=== PATIENT | female | born 1965 | race Caucasian/White ===

== ENCOUNTER 2022-10-25 12:14 | Inpatient (IN) | payer OTHER ==
[2022-10-25 13:54] VITALS: BMI 27.4
[2022-10-25] MEDS ORDERED: IBUPROFEN 400 MG TABLET (FP) PO PRN (14:55)
[2022-10-25] MEDS ORDERED: ONDANSETRON *ODT* 4 MG TABLET SL PRN (14:55)
[2022-10-25] MEDS ORDERED: POLYETHYLENE GLYCOL (HEALTHYLAX) 3350 17 GM PACKET PO PRN (14:55)
[2022-10-25] MEDS ORDERED: MAGNESIUM HYDROX 2400MG/30ML ORAL SUSPENSION 30 ML CUP PO PRN (14:55)
[2022-10-25] MEDS ORDERED: NALOXONE HCL (KLOXXADO) 8 MG SPRAY NS PRN (14:55)
[2022-10-25] MEDS ORDERED: BISMUTH SUBSALICYLATE 262 MG/15 ML BTL PO PRN (14:55)
[2022-10-25] MEDS ORDERED: ACETAMINOPHEN 325 MG TABLET (FP) PO PRN ×2 (14:55)
[2022-10-25] MEDS ORDERED: NICOTINE 10 MG CARTRIDGE (INHALER) IH PRN (14:55)
[2022-10-25] MEDS ORDERED: IBUPROFEN 600 MG TABLET (FP) PO PRN (14:55)
[2022-10-25] MEDS ORDERED: DICYCLOMINE HCL 10 MG CAPSULE PO PRN (14:55)
[2022-10-25] MEDS ORDERED: NICOTINE POLACRILEX 2 MG GUM BUC PRN (14:55)
[2022-10-25] MEDS ORDERED: BENZOCAINE/MENTHOL (CHLORASEPTIC ) LOZENGE MM PRN (14:55)
[2022-10-25] MEDS ORDERED: LOPERAMIDE HCL 2 MG CAPSULE PO PRN (14:55)
[2022-10-25] MEDS ORDERED: MAG HYDROX/AL HYDROX/SIMETH 30 ML UNIT-DOSE CUP PO PRN (14:55)
[2022-10-25] MEDS ORDERED: NICOTINE 7 MG/24 HOURS TOPICAL PATCH TD PRN (14:55)
[2022-10-25] MEDS ORDERED: ALBUTEROL SO4 HFA INHALER IH PRN (15:04)
[2022-10-25] MEDS: INSULIN SLIDING SCALE (NOVOLOG) 1 VIAL SQ SCH (17:53)
[2022-10-25] MEDS ORDERED: MELATONIN 5 MG TABLETS PO SCH (22:00)
[2022-10-25] MEDS: TOLNAFTATE 1% CREAM 15 GM TUBE TP SCH (22:55)
[2022-10-25] MEDS: THIAMINE HCL 100 MG TABLET (FP) PO SCH (22:55)
[2022-10-26] MEDS: INSULIN SLIDING SCALE (NOVOLOG) 1 VIAL SQ SCH ×2 (06:05→17:28)
[2022-10-26] MEDS: METHOCARBAMOL 500 MG TABLET PO PRN (06:07)
[2022-10-26] MEDS: hydrOXYzine PAMOATE 25 MG CAPSULE (FP) PO PRN (06:07)
[2022-10-26 09:47] LABS: BLOOD UREA NITROGEN 16.4 mg/dL (7-18); CALCIUM 8.9 mg/dL (8.5-10.1)
[2022-10-26 09:50] LABS: CREATININE 0.8 mg/dL (0.55-1.3)
[2022-10-26 09:52] LABS: BILIRUBIN,TOTAL 0.4 mg/dL (0.2-1); TOT PROT 7.3 g/dl (6.4-8.2)
[2022-10-26 09:53] LABS: HEMATOCRIT 38.8 % (32.4-45.2); HEMOGLOBIN 12.5 GM/dL (10.7-15.3); MCH 27.5 pg (25.7-33.7); MCHC 32.2 g/dl (32.0-36.0); MEAN CELL VOLUME 85.6 fl (80-96); MEAN PLT VOLUME 7.5 fl (7.5-11.1); PLATELET COUNT 436 10^3/uL (134-434); RBC 4.54 M/mm3 (3.60-5.2); RDW 14.3 % (11.6-15.6); WHITE BLOOD COUNT 7.3 K/mm3 (4.0-10.0)
[2022-10-26] MEDS ORDERED: methaDONE HCL 10 MG TABLET PO SCH (10:15)
[2022-10-26] MEDS: methaDONE 80 MG, methaDONE 20 MG PO SCH (10:16)
[2022-10-26] MEDS: PRENATAL VITAMINS W/ FOLIC ACID TABLET (FP) PO SCH (10:16)
[2022-10-26] MEDS: TOLNAFTATE 1% CREAM 15 GM TUBE TP SCH ×2 (10:16→22:24)
[2022-10-26] MEDS ORDERED: SUVOREXANT 5 MG TABLET PO PRN (22:00)
[2022-10-26] MEDS: THIAMINE HCL 100 MG TABLET (FP) PO SCH (22:22)
[2022-10-27] MEDS: methaDONE 80 MG, methaDONE 20 MG PO SCH (05:35)
[2022-10-27] MEDS: hydrOXYzine PAMOATE 25 MG CAPSULE (FP) PO PRN (05:37)
[2022-10-27] MEDS: INSULIN SLIDING SCALE (NOVOLOG) 1 VIAL SQ SCH (06:03)
[2022-10-27 07:06] VITALS: RESP 18
[2022-10-27 09:02] VITALS: BP 106/63; PULSE 66; TEMP 98.1
[2022-10-27] MEDS: PRENATAL VITAMINS W/ FOLIC ACID TABLET (FP) PO SCH (10:13)
[2022-10-27] MEDS: METHOCARBAMOL 500 MG TABLET PO PRN (10:15)
[2022-10-27] MEDS: TOLNAFTATE 1% CREAM 15 GM TUBE TP SCH (10:16)
== END 2022-10-27 13:05 | disposition other institution (70) | DRG 773 ==
LOC: YASAS 12:14 → Y3N 15:32
PROVIDERS: ADMIT Allergy & Immunology; ATTEND Surgery
PROC: HZ2ZZZZ Detoxification Services for Substance Abuse Treatment (ICD-10-PCS; principal; 2022-10-25)
DX: F11.20 Opioid dependence, uncomplicated (principal); F10.20 Alcohol dependence, uncomplicated; F14.20 Cocaine dependence, uncomplicated; F13.10 Sedative, hypnotic or anxiolytic abuse, uncomplicated; F17.210 Nicotine dependence, cigarettes, uncomplicated; F19.24 Other psychoactive substance dependence with psychoactive substance-induced mood disorder; G40.909 Epilepsy, unspecified, not intractable, without status epilepticus; G47.00 Insomnia, unspecified; I10 Essential (primary) hypertension; R73.03 Prediabetes; Z86.59 Personal history of other mental and behavioral disorders; Z99.89 Dependence on other enabling machines and devices; Z59.00 Homelessness unspecified; Z56.0 Unemployment, unspecified
CPT/HCPCS: 36415; 80053; 82140; 82962; 85027; 86593; 86780; C9803-CS; U0003; U0005

== ENCOUNTER 2022-10-27 13:18 | Inpatient (IN) | payer OTHER ==
[2022-10-27] MEDS ORDERED: MAGNESIUM HYDROX 2400MG/30ML ORAL SUSPENSION 30 ML CUP PO PRN (13:51)
[2022-10-27] MEDS ORDERED: P-EPHED 60MG/TRIPROLIDI 2.5MG TABLET PO PRN (13:51)
[2022-10-27] MEDS ORDERED: LOPERAMIDE HCL 2 MG CAPSULE PO PRN (13:51)
[2022-10-27] MEDS ORDERED: POLYETHYLENE GLYCOL (HEALTHYLAX) 3350 17 GM PACKET PO PRN (13:51)
[2022-10-27] MEDS ORDERED: ACETAMINOPHEN 325 MG TABLET (FP) PO PRN (13:51)
[2022-10-27] MEDS ORDERED: guaiFENesin 200 MG/10 ML 10 ML UNIT-DOSE CUPS PO PRN (13:51)
[2022-10-27] MEDS ORDERED: BENZOCAINE/MENTHOL (CHLORASEPTIC ) LOZENGE MM PRN (13:51)
[2022-10-27] MEDS ORDERED: IBUPROFEN 400 MG TABLET (FP) PO PRN (13:51)
[2022-10-27] MEDS: NICOTINE 10 MG CARTRIDGE (INHALER) IH PRN (14:51)
[2022-10-27] MEDS: THIAMINE HCL 100 MG TABLET (FP) PO SCH (21:49)
[2022-10-27] MEDS: MELATONIN 5 MG TABLETS PO SCH (21:49)
[2022-10-27] MEDS: TOLNAFTATE 1% CREAM 15 GM TUBE TP SCH (21:49)
[2022-10-28] MEDS: ALBUTEROL SO4 HFA INHALER IH PRN ×2 (05:59→22:18)
[2022-10-28] MEDS: methaDONE 80 MG, methaDONE 20 MG PO SCH (06:00)
[2022-10-28] MEDS: NICOTINE 10 MG CARTRIDGE (INHALER) IH PRN (08:07)
[2022-10-28] MEDS: PRENATAL VITAMINS W/ FOLIC ACID TABLET (FP) PO SCH (10:50)
[2022-10-28] MEDS: TOLNAFTATE 1% CREAM 15 GM TUBE TP SCH ×2 (10:50→21:09)
[2022-10-28] MEDS: hydrOXYzine PAMOATE 25 MG CAPSULE (FP) PO PRN (10:50)
[2022-10-28] MEDS: GABAPENTIN 300 MG CAPSULE PO SCH ×2 (14:18→21:09)
[2022-10-28] MEDS: QUEtiapine FUMARATE 50 MG TABLET PO SCH (21:09)
[2022-10-28] MEDS: THIAMINE HCL 100 MG TABLET (FP) PO SCH (21:09)
[2022-10-28] MEDS: MELATONIN 5 MG TABLETS PO SCH (21:09)
[2022-10-28] MEDS ORDERED: SUVOREXANT 5 MG TABLET PO PRN (22:00)
[2022-10-29] MEDS: GABAPENTIN 300 MG CAPSULE PO SCH ×3 (06:21→21:08)
[2022-10-29] MEDS: methaDONE 80 MG, methaDONE 20 MG PO SCH (06:21)
[2022-10-29] MEDS: PRENATAL VITAMINS W/ FOLIC ACID TABLET (FP) PO SCH (09:38)
[2022-10-29] MEDS: TOLNAFTATE 1% CREAM 15 GM TUBE TP SCH ×2 (09:39→21:08)
[2022-10-29] MEDS: hydrOXYzine PAMOATE 25 MG CAPSULE (FP) PO PRN ×2 (13:08→21:09)
[2022-10-29] MEDS: ALBUTEROL SO4 HFA INHALER IH PRN (21:07)
[2022-10-29] MEDS: QUEtiapine FUMARATE 50 MG TABLET PO SCH (21:08)
[2022-10-29] MEDS: MELATONIN 5 MG TABLETS PO SCH (21:08)
[2022-10-29] MEDS: THIAMINE HCL 100 MG TABLET (FP) PO SCH (21:08)
[2022-10-30] MEDS: methaDONE 80 MG, methaDONE 20 MG PO SCH (06:46)
[2022-10-30] MEDS: GABAPENTIN 300 MG CAPSULE PO SCH ×3 (06:47→21:08)
[2022-10-30] MEDS: PRENATAL VITAMINS W/ FOLIC ACID TABLET (FP) PO SCH (09:57)
[2022-10-30] MEDS: hydrOXYzine PAMOATE 25 MG CAPSULE (FP) PO PRN (09:58)
[2022-10-30] MEDS: TOLNAFTATE 1% CREAM 15 GM TUBE TP SCH ×2 (09:58→21:09)
[2022-10-30] MEDS: ALBUTEROL SO4 HFA INHALER IH PRN (14:33)
[2022-10-30] MEDS: MELATONIN 5 MG TABLETS PO SCH (21:08)
[2022-10-30] MEDS: THIAMINE HCL 100 MG TABLET (FP) PO SCH (21:08)
[2022-10-30] MEDS: QUEtiapine FUMARATE 50 MG TABLET PO SCH (21:08)
[2022-10-31] MEDS: ALBUTEROL SO4 HFA INHALER IH PRN (06:25)
[2022-10-31] MEDS: GABAPENTIN 300 MG CAPSULE PO SCH ×3 (06:26→21:16)
[2022-10-31] MEDS: methaDONE 80 MG, methaDONE 20 MG PO SCH (06:26)
[2022-10-31] MEDS: PRENATAL VITAMINS W/ FOLIC ACID TABLET (FP) PO SCH (09:53)
[2022-10-31] MEDS: TOLNAFTATE 1% CREAM 15 GM TUBE TP SCH ×2 (09:53→21:16)
[2022-10-31] MEDS: QUEtiapine FUMARATE 50 MG TABLET PO SCH (21:16)
[2022-10-31] MEDS: MELATONIN 5 MG TABLETS PO SCH (21:16)
[2022-10-31] MEDS: THIAMINE HCL 100 MG TABLET (FP) PO SCH (21:16)
[2022-10-31] MEDS ORDERED: SUVOREXANT 5 MG TABLET PO PRN (22:00)
[2022-11-01] MEDS: methaDONE 80 MG, methaDONE 20 MG PO SCH (06:20)
[2022-11-01] MEDS: GABAPENTIN 300 MG CAPSULE PO SCH ×3 (06:20→21:04)
[2022-11-01] MEDS: PRENATAL VITAMINS W/ FOLIC ACID TABLET (FP) PO SCH (09:54)
[2022-11-01] MEDS: ALBUTEROL SO4 HFA INHALER IH PRN (09:54)
[2022-11-01] MEDS: TOLNAFTATE 1% CREAM 15 GM TUBE TP SCH ×2 (09:54→21:06)
[2022-11-01] MEDS: THIAMINE HCL 100 MG TABLET (FP) PO SCH (21:03)
[2022-11-01] MEDS: MELATONIN 5 MG TABLETS PO SCH (21:04)
[2022-11-01] MEDS: QUEtiapine FUMARATE 50 MG TABLET PO SCH (21:04)
[2022-11-02] MEDS: GABAPENTIN 300 MG CAPSULE PO SCH ×3 (06:37→21:09)
[2022-11-02] MEDS: methaDONE 80 MG, methaDONE 20 MG PO SCH (06:38)
[2022-11-02] MEDS: NICOTINE 10 MG CARTRIDGE (INHALER) IH PRN (08:58)
[2022-11-02] MEDS: PRENATAL VITAMINS W/ FOLIC ACID TABLET (FP) PO SCH (09:39)
[2022-11-02] MEDS: TOLNAFTATE 1% CREAM 15 GM TUBE TP SCH ×2 (09:40→23:34)
[2022-11-02] MEDS: QUEtiapine FUMARATE 50 MG TABLET PO SCH (21:09)
[2022-11-02] MEDS: hydrOXYzine PAMOATE 25 MG CAPSULE (FP) PO PRN (21:09)
[2022-11-02] MEDS: MELATONIN 5 MG TABLETS PO SCH (21:09)
[2022-11-02] MEDS: THIAMINE HCL 100 MG TABLET (FP) PO SCH (21:09)
[2022-11-03] MEDS: methaDONE 80 MG, methaDONE 20 MG PO SCH (06:27)
[2022-11-03] MEDS: GABAPENTIN 300 MG CAPSULE PO SCH ×3 (06:27→21:12)
[2022-11-03] MEDS: ALBUTEROL SO4 HFA INHALER IH PRN (06:27)
[2022-11-03] MEDS: TOLNAFTATE 1% CREAM 15 GM TUBE TP SCH ×2 (09:51→21:20)
[2022-11-03] MEDS: PRENATAL VITAMINS W/ FOLIC ACID TABLET (FP) PO SCH (09:51)
[2022-11-03] MEDS ORDERED: methaDONE 80 MG, methaDONE 20 MG PO SCH (11:45)
[2022-11-03] MEDS: THIAMINE HCL 100 MG TABLET (FP) PO SCH (21:12)
[2022-11-03] MEDS: MELATONIN 5 MG TABLETS PO SCH (21:12)
[2022-11-03] MEDS: QUEtiapine FUMARATE 50 MG TABLET PO SCH (21:12)
[2022-11-03] MEDS: hydrOXYzine PAMOATE 25 MG CAPSULE (FP) PO PRN (21:13)
[2022-11-03] MEDS ORDERED: SUVOREXANT 5 MG TABLET PO PRN (22:00)
[2022-11-04] MEDS ORDERED: methaDONE HCL 10 MG TABLET PO SCH (06:00)
[2022-11-04] MEDS: methaDONE 80 MG, methaDONE 20 MG PO SCH (06:32)
[2022-11-04] MEDS: GABAPENTIN 300 MG CAPSULE PO SCH ×3 (06:33→21:13)
[2022-11-04] MEDS: NICOTINE 10 MG CARTRIDGE (INHALER) IH PRN (06:50)
[2022-11-04] MEDS: PRENATAL VITAMINS W/ FOLIC ACID TABLET (FP) PO SCH (09:38)
[2022-11-04] MEDS: TOLNAFTATE 1% CREAM 15 GM TUBE TP SCH ×2 (09:39→21:13)
[2022-11-04] MEDS: LIDOCAINE 5% TOPICAL PATCH TP SCH (09:58)
[2022-11-04] MEDS: THIAMINE HCL 100 MG TABLET (FP) PO SCH (21:13)
[2022-11-04] MEDS: LIDOCAINE PATCH REMOVAL MC SCH (21:14)
[2022-11-04] MEDS ORDERED: SUVOREXANT 10 MG TABLET PO PRN (22:00)
[2022-11-05] MEDS: GABAPENTIN 300 MG CAPSULE PO SCH ×3 (06:13→21:13)
[2022-11-05] MEDS: methaDONE 80 MG, methaDONE 20 MG PO SCH (06:13)
[2022-11-05] MEDS: PRENATAL VITAMINS W/ FOLIC ACID TABLET (FP) PO SCH (09:45)
[2022-11-05] MEDS: TOLNAFTATE 1% CREAM 15 GM TUBE TP SCH ×2 (09:47→21:38)
[2022-11-05] MEDS: LIDOCAINE 5% TOPICAL PATCH TP SCH (09:47)
[2022-11-05] MEDS: LIDOCAINE PATCH REMOVAL MC SCH (21:13)
[2022-11-05] MEDS: THIAMINE HCL 100 MG TABLET (FP) PO SCH (21:13)
[2022-11-05] MEDS: hydrOXYzine PAMOATE 25 MG CAPSULE (FP) PO PRN (21:14)
[2022-11-06] MEDS: methaDONE 80 MG, methaDONE 20 MG PO SCH (06:32)
[2022-11-06] MEDS: GABAPENTIN 300 MG CAPSULE PO SCH ×3 (06:32→21:09)
[2022-11-06] MEDS: PRENATAL VITAMINS W/ FOLIC ACID TABLET (FP) PO SCH (09:53)
[2022-11-06] MEDS: LIDOCAINE 5% TOPICAL PATCH TP SCH (09:54)
[2022-11-06] MEDS: TOLNAFTATE 1% CREAM 15 GM TUBE TP SCH ×2 (09:55→21:10)
[2022-11-06] MEDS: THIAMINE HCL 100 MG TABLET (FP) PO SCH (21:09)
[2022-11-06] MEDS: LIDOCAINE PATCH REMOVAL MC SCH (21:10)
[2022-11-07] MEDS: GABAPENTIN 300 MG CAPSULE PO SCH ×3 (06:32→21:09)
[2022-11-07] MEDS: methaDONE 80 MG, methaDONE 20 MG PO SCH (06:33)
[2022-11-07] MEDS: NICOTINE 10 MG CARTRIDGE (INHALER) IH PRN (06:34)
[2022-11-07] MEDS: PRENATAL VITAMINS W/ FOLIC ACID TABLET (FP) PO SCH (10:10)
[2022-11-07] MEDS: LIDOCAINE 5% TOPICAL PATCH TP SCH (10:11)
[2022-11-07] MEDS: TOLNAFTATE 1% CREAM 15 GM TUBE TP SCH ×2 (10:11→21:10)
[2022-11-07] MEDS: THIAMINE HCL 100 MG TABLET (FP) PO SCH (21:09)
[2022-11-07] MEDS: LIDOCAINE PATCH REMOVAL MC SCH (21:09)
[2022-11-07] MEDS: hydrOXYzine PAMOATE 25 MG CAPSULE (FP) PO PRN (21:10)
[2022-11-07] MEDS ORDERED: SUVOREXANT 10 MG TABLET PO PRN (22:00)
[2022-11-08] MEDS: methaDONE 80 MG, methaDONE 20 MG PO SCH (06:24)
[2022-11-08] MEDS: GABAPENTIN 300 MG CAPSULE PO SCH ×3 (06:24→21:48)
[2022-11-08] MEDS: PRENATAL VITAMINS W/ FOLIC ACID TABLET (FP) PO SCH (09:57)
[2022-11-08] MEDS: LIDOCAINE 5% TOPICAL PATCH TP SCH (09:58)
[2022-11-08] MEDS: TOLNAFTATE 1% CREAM 15 GM TUBE TP SCH ×2 (09:58→21:49)
[2022-11-08] MEDS: THIAMINE HCL 100 MG TABLET (FP) PO SCH (21:48)
[2022-11-08] MEDS: LIDOCAINE PATCH REMOVAL MC SCH (21:48)
[2022-11-09] MEDS: GABAPENTIN 300 MG CAPSULE PO SCH ×3 (06:39→21:44)
[2022-11-09] MEDS: NICOTINE 10 MG CARTRIDGE (INHALER) IH PRN (06:39)
[2022-11-09] MEDS: methaDONE 80 MG, methaDONE 20 MG PO SCH (06:39)
[2022-11-09] MEDS: LIDOCAINE 5% TOPICAL PATCH TP SCH (10:00)
[2022-11-09] MEDS: PRENATAL VITAMINS W/ FOLIC ACID TABLET (FP) PO SCH (10:00)
[2022-11-09] MEDS: TOLNAFTATE 1% CREAM 15 GM TUBE TP SCH ×2 (10:02→21:45)
[2022-11-09] MEDS: THIAMINE HCL 100 MG TABLET (FP) PO SCH (21:44)
[2022-11-09] MEDS: LIDOCAINE PATCH REMOVAL MC SCH (21:45)
[2022-11-09] MEDS: hydrOXYzine PAMOATE 25 MG CAPSULE (FP) PO PRN (21:45)
[2022-11-10] MEDS: methaDONE 80 MG, methaDONE 20 MG PO SCH (06:36)
[2022-11-10] MEDS: GABAPENTIN 300 MG CAPSULE PO SCH ×3 (06:37→21:55)
[2022-11-10] MEDS: PRENATAL VITAMINS W/ FOLIC ACID TABLET (FP) PO SCH (10:09)
[2022-11-10] MEDS: LIDOCAINE 5% TOPICAL PATCH TP SCH (10:10)
[2022-11-10] MEDS: TOLNAFTATE 1% CREAM 15 GM TUBE TP SCH ×2 (10:11→21:56)
[2022-11-10] MEDS: THIAMINE HCL 100 MG TABLET (FP) PO SCH (21:55)
[2022-11-10] MEDS: hydrOXYzine PAMOATE 25 MG CAPSULE (FP) PO PRN (21:55)
[2022-11-10] MEDS: LIDOCAINE PATCH REMOVAL MC SCH (21:56)
[2022-11-10] MEDS ORDERED: SUVOREXANT 10 MG TABLET PO PRN (22:00)
[2022-11-11] MEDS: MAG HYDROX/AL HYDROX/SIMETH 30 ML UNIT-DOSE CUP PO PRN (06:46)
[2022-11-11] MEDS: methaDONE 80 MG, methaDONE 20 MG PO SCH (07:25)
[2022-11-11] MEDS: GABAPENTIN 300 MG CAPSULE PO SCH ×3 (07:27→21:13)
[2022-11-11] MEDS ORDERED: ONDANSETRON *ODT* 4 MG TABLET SL PRN (07:44)
[2022-11-11] MEDS: LIDOCAINE 5% TOPICAL PATCH TP SCH (10:21)
[2022-11-11] MEDS: TOLNAFTATE 1% CREAM 15 GM TUBE TP SCH ×2 (10:21→21:14)
[2022-11-11] MEDS: PRENATAL VITAMINS W/ FOLIC ACID TABLET (FP) PO SCH (10:21)
[2022-11-11] MEDS: LIDOCAINE PATCH REMOVAL MC SCH (21:13)
[2022-11-11] MEDS: THIAMINE HCL 100 MG TABLET (FP) PO SCH (21:13)
[2022-11-11] MEDS: hydrOXYzine PAMOATE 25 MG CAPSULE (FP) PO PRN (21:15)
[2022-11-12] MEDS: GABAPENTIN 300 MG CAPSULE PO SCH ×3 (06:25→21:29)
[2022-11-12] MEDS: methaDONE 80 MG, methaDONE 20 MG PO SCH (06:25)
[2022-11-12] MEDS: MAG HYDROX/AL HYDROX/SIMETH 30 ML UNIT-DOSE CUP PO PRN (06:27)
[2022-11-12] MEDS: NICOTINE 10 MG CARTRIDGE (INHALER) IH PRN (07:05)
[2022-11-12] MEDS: LIDOCAINE 5% TOPICAL PATCH TP SCH (09:40)
[2022-11-12] MEDS: TOLNAFTATE 1% CREAM 15 GM TUBE TP SCH ×2 (09:41→21:29)
[2022-11-12] MEDS: PRENATAL VITAMINS W/ FOLIC ACID TABLET (FP) PO SCH (09:41)
[2022-11-12] MEDS: LIDOCAINE PATCH REMOVAL MC SCH (21:28)
[2022-11-12] MEDS: THIAMINE HCL 100 MG TABLET (FP) PO SCH (21:29)
[2022-11-12] MEDS: hydrOXYzine PAMOATE 25 MG CAPSULE (FP) PO PRN (21:29)
[2022-11-13] MEDS: methaDONE 80 MG, methaDONE 20 MG PO SCH (06:28)
[2022-11-13] MEDS: NICOTINE 10 MG CARTRIDGE (INHALER) IH PRN (06:28)
[2022-11-13] MEDS: GABAPENTIN 300 MG CAPSULE PO SCH ×3 (06:29→21:43)
[2022-11-13] MEDS: PRENATAL VITAMINS W/ FOLIC ACID TABLET (FP) PO SCH (10:24)
[2022-11-13] MEDS: TOLNAFTATE 1% CREAM 15 GM TUBE TP SCH ×2 (10:24→23:12)
[2022-11-13] MEDS: LIDOCAINE 5% TOPICAL PATCH TP SCH (10:24)
[2022-11-13] MEDS: THIAMINE HCL 100 MG TABLET (FP) PO SCH (21:43)
[2022-11-13] MEDS: LIDOCAINE PATCH REMOVAL MC SCH (23:12)
[2022-11-14] MEDS: methaDONE 80 MG, methaDONE 20 MG PO SCH (06:24)
[2022-11-14] MEDS: GABAPENTIN 300 MG CAPSULE PO SCH ×3 (06:24→21:26)
[2022-11-14 07:17] VITALS: RESP 16
[2022-11-14] MEDS: PRENATAL VITAMINS W/ FOLIC ACID TABLET (FP) PO SCH (09:26)
[2022-11-14] MEDS: LIDOCAINE 5% TOPICAL PATCH TP SCH (09:26)
[2022-11-14] MEDS: TOLNAFTATE 1% CREAM 15 GM TUBE TP SCH ×2 (09:28→21:27)
[2022-11-14] MEDS: LIDOCAINE PATCH REMOVAL MC SCH (21:26)
[2022-11-14] MEDS: THIAMINE HCL 100 MG TABLET (FP) PO SCH (21:26)
[2022-11-14] MEDS: hydrOXYzine PAMOATE 25 MG CAPSULE (FP) PO PRN (21:27)
[2022-11-15] MEDS: GABAPENTIN 300 MG CAPSULE PO SCH (06:11)
[2022-11-15] MEDS: methaDONE 80 MG, methaDONE 20 MG PO SCH (06:11)
[2022-11-15 07:26] VITALS: BP 113/60; PULSE 79; TEMP 97.5
[2022-11-15] MEDS: ALBUTEROL SO4 HFA INHALER IH PRN (09:14)
[2022-11-15] MEDS: PRENATAL VITAMINS W/ FOLIC ACID TABLET (FP) PO SCH (09:14)
[2022-11-15] MEDS: LIDOCAINE 5% TOPICAL PATCH TP SCH (09:14)
[2022-11-15] MEDS: TOLNAFTATE 1% CREAM 15 GM TUBE TP SCH (09:15)
== END 2022-11-15 09:40 | disposition home or self-care (01) | DRG 772 ==
LOC: YASAS 13:18 → Y5N 13:19
PROVIDERS: ADMIT Allergy & Immunology; ATTEND Psychiatry & Neurology Pain Medicine
PROC: HZ42ZZZ Group Counseling for Substance Abuse Treatment, Cognitive-Behavioral (ICD-10-PCS; principal; 2022-10-27)
DX: F10.20 Alcohol dependence, uncomplicated (principal); F11.20 Opioid dependence, uncomplicated; F14.20 Cocaine dependence, uncomplicated; F19.24 Other psychoactive substance dependence with psychoactive substance-induced mood disorder; F41.9 Anxiety disorder, unspecified; F32.A Depression, unspecified; F43.10 Post-traumatic stress disorder, unspecified; F90.9 Attention-deficit hyperactivity disorder, unspecified type; G62.9 Polyneuropathy, unspecified; G40.909 Epilepsy, unspecified, not intractable, without status epilepticus; I10 Essential (primary) hypertension; M71.22 Synovial cyst of popliteal space [Baker], left knee; R11.2 Nausea with vomiting, unspecified; R26.89 Other abnormalities of gait and mobility; W07.XXXA Fall from chair, initial encounter; Y92.238 Other place in hospital as the place of occurrence of the external cause; Z99.89 Dependence on other enabling machines and devices; Z56.0 Unemployment, unspecified; Z59.00 Homelessness unspecified
CPT/HCPCS: 36415; 86803; C9803-CS; Q0162; U0003; U0005